=== PATIENT | female | born 1990 | race Asian ===

== ENCOUNTER 2017-04-28 05:15 | Emergency (ER) | payer BC ==
[~2017-04-28] VITALS: Ht 162.6 cm; Wt 49.9 kg
[2017-04-28 05:31] VITALS: BP 122/77
--- NOTE | 2017-04-28 05:38 | Emergency Room Report ---
History of Present Illness General Chief Complaint: Abdominal Pain Source: Patient (WHITNEY MCCAULEY M.D.) Present Illness HPI Is a 27-year-old female with no past medical history. Patient presents with epigastric pain and vomiting. Onset around 2 AM. She woke up with it. No radiation. No diarrhea. Pain is sharp and crampy in nature. Denies any other complaint. Pain is 9/10. (WHITNEY MCCAULEY M.D.) Allergies: Coded Allergies: No Known Allergies (Unverified , 04/28/17) Patient History Past Medical History: none, see triage record, old chart reviewed Past Surgical History: none Pertinent Family History: none Social History: Denies: smoking Last Menstrual Period: 04/25/19 Now: No Immunizations: other Reviewed Nursing Documentation: PMH: Agreed, PSxH: Agreed (WHITNEY MCCAULEY M.D.) Nursing Documentation-PMH Past Medical History: No Stated History (WHITNEY MCCAULEY M.D.) Review of Systems Eye: Denies: blurred vision, eye pain ENT: Denies: ear pain, nose congestion, throat swelling Respiratory: Denies: cough, shortness of breath Cardiovascular: Denies: chest pain, palpitations Gastrointestinal: Reports: abdominal pain, nausea, vomiting, Denies: diarrhea Musculoskeletal: Denies: back pain, joint pain Skin: Denies: rash Neurological: Denies: headache, numbness Endocrine: Denies: increased thirst, increased urine Hematologic/Lymphatic: Denies: easy bruising All Other Systems: negative except mentioned in HPI (WHITNEY MCCAULEY M.D.) Physical Exam Vital Signs Date Time Temp Pulse Resp B/P Pulse Ox O2 Delivery O2 Flow Rate FiO2 04/28/17 05:19 98.1 66 16 122/77 100 Room Air vitals normal Sp02 EP Interpretation: reviewed, normal General Appearance: well appearing, no apparent distress, alert Head: normocephalic, atraumatic Eyes: bilateral eye EOMI, bilateral eye PERRL ENT: hearing grossly normal, normal pharynx Neck: full range of motion, supple, no meningismus Respiratory: chest non-tender, lungs clear, normal breath sounds Cardiovascular #1: regular rate, rhythm, no murmur Gastrointestinal: non tender, no mass, no organomegaly, no bruit, non-distended , decreased bowel sounds Musculoskeletal: back normal, gait/station normal, normal range of motion Neurologic: alert, oriented x3 Psychiatric: mood/affect normal Skin: warm/dry (WHITNEY MCCAULEY M.D.) Vital Signs Date Time Temp Pulse Resp B/P Pulse Ox O2 Delivery O2 Flow Rate FiO2 04/28/17 05:19 98.1 66 16 122/77 100 Room Air Cardiovascular #2: 2+ radial (R) (Abiodun Feliciano M.D.) Medical Decision Making Diagnostic Impression: Primary Impression: Abdominal pain Qualified Codes: R10.13 - Epigastric pain Additional Impression: Vomiting Qualified Codes: R11.2 - Nausea with vomiting, unspecified ER Course Patient presents with abdominal pain and vomiting. Labs ordered. CT order. Patient will be signed out to Dr. Feliciano for final disposition. She felt better now. (WHITNEY MCCAULEY M.D.) ER Course Please see above note from Dr. Mccauley. Patient doing better. Still c/o pain 6/10. More when lays down. Shocking and radiating upwards from epigastric area. CT pending. CT is noted below. Improved after a small dose of morphine. Offered the patient be observed in hospital versus observed at home. She is from out of town and staying [facility]. She and her significant other would like to be observed at "home". Will be given copies of CT and laboratory. Discussed the UA findings with the patient. Her period is ending. Doubt UTI and will not treat at this time. Will follow culture. Patient understands. Patient stable for outpatient observation and treatment. Laboratory Tests Test 04/28/17 05:30 White Blood Count 6.2 K/UL (4.8-10.8) Red Blood Count 4.46 M/UL (4.20-5.40) Hemoglobin 14.0 G/DL (12.0-16.0) Hematocrit 41.1 % (37.0-47.0) Mean Corpuscular Volume 92 FL (80-99) Mean Corpuscular Hemoglobin 31.3 PG (27.0-31.0) H Mean Corpuscular Hemoglobin Concent 33.9 G/DL (32.0-36.0) Red Cell Distribution Width 11.3 % (11.6-14.8) L Platelet Count 172 K/UL (150-450) Mean Platelet Volume 8.8 FL (6.5-10.1) Neutrophils (%) (Auto) 28.0 % (45.0-75.0) L Lymphocytes (%) (Auto) 48.7 % (20.0-45.0) H Monocytes (%) (Auto) 5.4 % (1.0-10.0) Eosinophils (%) (Auto) 16.8 % (0.0-3.0) H Basophils (%) (Auto) 1.1 % (0.0-2.0) Urine Color Yellow Urine Appearance Cloudy Urine pH 5 (4.5-8.0) Urine Specific [place] 1.030 (1.005-1.035) Urine Protein 2+ (NEGATIVE) H Urine Glucose (UA) Negative (NEGATIVE) Urine Ketones Negative (NEGATIVE) Urine Occult Blood 5+ (NEGATIVE) H Urine Nitrite Negative (NEGATIVE) Urine Bilirubin Negative (NEGATIVE) Urine Urobilinogen 1 MG/DL (0.0-1.0) H Urine Leukocyte Esterase 1+ (NEGATIVE) H Urine RBC Tntc /HPF (0 - 2) H Urine WBC 5-10 /HPF (0 - 2) H Urine Squamous Epithelial Cells Few /LPF (NONE/OCC) Urine Bacteria Moderate /HPF (NONE) H Urine HCG, Qualitative Negative Sodium Level 139 mEQ/L (135-145) Potassium Level 4.1 mEQ/L (3.4-4.9) Chloride Level 104 mEQ/L (98-107) Carbon Dioxide Level 26 mEQ/L (20-30) Anion Gap 9 (5-15) Blood Urea Nitrogen 12 mg/dL (7-23) Creatinine 0.7 mg/dL (0.5-0.9) Estimate Glomerular Filtration Rate > 60 mL/min (>60) Glucose Level 113 mg/dL (74-106) H Calcium Level 8.8 mg/dL (8.6-10.2) Total Bilirubin 0.3 mg/dL (0.0-1.2) Aspartate Amino Transferase (AST) 16 U/L (5-40) Alanine Aminotransferase (ALT) 9 U/L (3-33) Alkaline Phosphatase 46 U/L (35-104) Total Protein 6.3 g/dL (6.6-8.7) L Albumin 4.3 g/dL (3.5-5.2) Globulin 2.0 g/dL Albumin/Globulin Ratio 2.1 (1.0-2.7) Lipase 40 U/L (< 60) (Abiodun Feliciano M.D.) CT/MRI/US Diagnostic Results CT/MRI/US Diagnostic Results : Imaging Test Ordered: ct abd pelvis Impression 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 No evidence of acute obstruction. Her graft appendixes partially visualized on images 16-19 and appears unremarkable. Generalized increased fecal [place]. There is nonspecific mesenteric haziness in the right abdomen. Differential considerations include nonspecific infectious or inflammatory enteritis versus nonobstructive internal hernia versus missed arthritis. There is swelling of mesenteric vessels noted in the medial lower abdomen on image 15 series to. Small bowel follow-through series may further evaluate. No free air or fluid collections. No radiopaque gallstones. Trace amount of pre-cholecystic fluid. No pancreatitis or pyonephritis. No [place] nephrosis. Normal-caliber aorta. Physiologic follicular changes in the ovaries. Small amount of free fluid in the pelvis may be physiologic. (Abiodun Feliciano M.D.) Last Vital Signs Date Time Temp Pulse Resp B/P Pulse Ox O2 Delivery O2 Flow Rate FiO2 04/28/17 05:19 98.1 66 16 122/77 100 Room Air Status: improved (WHITNEY MCCAULEY M.D.) Status: improved (Abiodun Feliciano M.D.) Disposition: HOME, SELF-CARE Condition: Stable Scripts Famotidine (PEPCID) 20 Mg Tablet 20 MG ORAL DAILY, #7 TAB 0 Refills Prov: Abiodun Feliciano M.D. 04/28/17 Tramadol Hcl* (ULTRAM*) 50 Mg Tablet 50 MG ORAL Q6H Y for For Pain, #12 TAB 0 Refills Prov: Abiodun Feliciano M.D. 04/28/17 Ondansetron Odt* (ZOFRAN ODT*) 4 Mg Tab.rapdis 4 MG ORAL Q6H Y for Nausea & Vomiting, #6 TAB 0 Refills Prov: Abiodun Feliciano M.D. 04/28/17 WHITNEY MCCAULEY M.D. Apr 28, 2017 05:38 Abiodun Feliciano M.D. Apr 28, 2017 06:36
[2017-04-28] MEDS ORDERED: Ketorolac 30mg Inj IV ONE (05:45)
[2017-04-28] MEDS ORDERED: Pantoprazole Inj IVP ONE (06:15)
[2017-04-28 06:20] LABS: BASOPHILS % (AUTO) 1.1 % (0.0-2.0); EOSINOPHILS % (AUTO) 16.8 % (0.0-3.0); LYMPHOCYTES % (AUTO) 48.7 % (20.0-45.0); MEAN CORPUSCULAR HEMOGLOBIN 31.3 PG (27.0-31.0); MEAN CORPUSCULAR HGB CONC 33.9 G/DL (32.0-36.0); MEAN CORPUSCULAR VOLUME 92 FL (80-99); MEAN PLATELET VOLUME 8.8 FL (6.5-10.1); MONOCYTES % (AUTO) 5.4 % (1.0-10.0); PLATELET COUNT 172 K/UL (150-450); RED BLOOD COUNT 4.46 M/UL (4.20-5.40); RED CELL DISTRIBUTION WIDTH 11.3 % (11.6-14.8); WHITE BLOOD COUNT 6.2 K/UL (4.8-10.8)
[2017-04-28 06:21] LABS: APPEARANCE,URINE CLOUDY; KETONES,URINE NEGATIVE (NEGATIVE); LEUKOCYTE ESTERASE ,URINE 1+ (NEGATIVE); NITRITE,URINE NEGATIVE (NEGATIVE); PH,URINE 5 (4.5-8.0); PROTEIN,URINE 2+ (NEGATIVE); UROBILINOGEN,URINE 1 MG/DL (0.0-1.0)
[2017-04-28] MEDS ORDERED: Morphine Sulfate 4mg/ml Inj ONE (06:36)
[2017-04-28 06:40] LABS: ALANINE AMINOTRANSFERASE 9 U/L (3-33); ALBUMIN/GLOBULIN RATIO 2.1 (1.0-2.7); ANION GAP 9 (5-15); ASPARTATE AMINO TRANSFERASE 16 U/L (5-40); CALCIUM 8.8 mg/dL (8.6-10.2); CARBON DIOXIDE 26 mEQ/L (20-30); CHLORIDE 104 mEQ/L (98-107); CREATININE 0.7 mg/dL (0.5-0.9); GLOMERULAR FILTRATION RATE > 60 mL/min (>60); HEMOLYSIS 9; LIPASE 40 U/L (< 60); POTASSIUM 4.1 mEQ/L (3.4-4.9); SODIUM 139 mEQ/L (135-145); TOTAL PROTEIN 6.3 g/dL (6.6-8.7)
[2017-04-28 06:45] LABS: BACTERIA,URINE MODERATE /HPF; RBC,URINE TNTC /HPF (0 - 2); SQUAMOUS EPITHELIAL CELL,UR FEW /LPF (NONE/OCC)
[2017-04-28] MEDS ORDERED: Morphine Sulfate 4mg/ml Inj IVP ONE (06:45)
[2017-04-28 07:10] VITALS: BP 126/79
[2017-04-28] MEDS ORDERED: TRAMADOL HCL50 MG ORAL (08:21)
[2017-04-28] MEDS ORDERED: ZOFRAN ODT4 MG ORAL (08:21)
[2017-04-28] MEDS ORDERED: PEPCID20 MG ORAL (08:21)
[2017-04-28 08:47] VITALS: BP 122/81
[2017-04-28 08:48] VITALS: BP 122/81
--- NOTE | 2017-04-28 09:08 | Diagnostic Imaging Report ---
Indication: Abdominal pain Technique: Continuous helical transaxial imaging of the abdomen and pelvis was obtained from the lung bases to the pubic symphysis during intravenous contrast administration. Coronal 2-D reformats were also obtained. Study obtained in a Siemens sensation [address] Total Dose length Product (DLP): [address] Dose Index Volume (CTDIvol): 14 mGy Comparison: None Findings: There is a mid gut malrotation present. The ligament of Treitz is not left of midline. The duodenum does not cross from right to left. Consequently the small bowel loops are on the right side of abdomen. There is no evidence of bowel obstruction. However in the lower abdomen there is a swirling of the mesenteric root and vessels suspicious for least a partial volvulus or internal hernia. There is no significant inflammation or wall thickening of bowel or other complications identified that would warrant urgent surgical intervention. The uterus is noted. The appendix is seen. The appendix appears to be midline. The position of the cecum is difficult to see on this exam. Will presume the cecum is on the left side given the malrotation. There is a moderate amount of fecal retention in the colon. The study is also limited as no oral contrast was given. There is no free air. There is periportal edema present. There is slight thickening of the gallbladder wall. No gallstones are seen on this exam. The kidneys appear unremarkable. The pancreas, adrenal glands and spleen appear normal. Impression: Intestinal midgut malrotation. No evidence of bowel obstruction. However there is evidence of a twisting of the lower aspect of the mesenteric root, which could be the source of the abdominal pain. There is no bowel obstruction or evidence of intestinal necrosis or GI perforation. Moderate fecal retention within the colon. Normal appendix Mild periportal edema and gallbladder wall thickening. The findings are nonspecific. The examination is limited as no oral contrast was given. Would suggest repeating the exam with oral contrast or obtaining upper GI/small bowel follow-through for more comprehensive evaluation of the malrotation. [facility] has communicated the preliminary results to the Emergency Department. Their findings are largely concordant with this report. The CT scanner at [facility] is accredited by the [place] [employer] and the scans are performed using dose optimization techniques as appropriate to a performed exam including Automatic Exposure control.
== END 2017-04-28 08:48 | disposition home or self-care (01) ==
LOC: EMR 06:01
DX: R10.13 Epigastric pain (principal); R11.2 Nausea with vomiting, unspecified
CPT/HCPCS: 36415; 74177; 80053; 81003; 81025; 83690; 85025; 87086; 96361; 96374; 96375; 99284; C9113; J1885; J2270; J2405; Q9967